=== PATIENT | male | born 1990 | race Caucasian/White ===

== ENCOUNTER 2016-07-29 14:25 | Emergency (ER) | payer OTHER ==
[~2016-07-29 14:25] MED LIST: IBUP800T24 PO; WHITGEL TOP
[2016-07-29 15:30] LABS: Basophils # (auto) 0 uL; Eosinophils # (auto) 0 uL; Eosinophils % (auto) 0.1 % (0.0-7.0); Hematocrit 48.2 % (41.0-53.0); Hemoglobin 16.5 g/dL (13.5-17.5); Lymphocytes # (auto) 0.8 uL; Lymphocytes % (auto) 5.6 % (10.0-50.0); Mean Corpuscular Hgb Conc. 34.3 g/dL (32.0-36.0); Mean Corpuscular Volume 87.6 fL (80.0-100.0); Mean Platelet Volume 9.3 fL (7.4-10.4); Monocytes # (auto) 0.7 uL; Monocytes % (auto) 4.7 % (0.0-12.0); Neutrophils # (auto) 12.8 uL; Neutrophils % (auto) 89.6 % (37.0-80.0); Platelet Count (auto) 303 10^3/uL (140-450); Red Cell Distribution Width 13.3 % (11.6-16.0); White Blood Cell 14.3 10^3/uL (4.4-10.8)
[2016-07-29 15:34] LABS: Albumin 4.9 g/dL (3.4-5.0); Alkaline Phosphatase 109 U/L (45-117); Anion Gap 10 (5-15); Aspartate Aminotransferase 19 U/L (15-37); BUN/Creatinine Ratio 16.5; Bilirubin, Total 1.1 mg/dL (0.2-1.0); Blood Urea Nitrogen 21 mg/dL (7-18); Calcium 10.2 mg/dL (8.5-10.1); Carbon Dioxide 26 mmol/L (21-32); Chloride 101 mmol/L (98-107); GFR African American 89 mL/min; GFR Non-African American 73 mL/min; Glucose 117 mg/dL (74-106); Magnesium 2.3 mg/dL (1.6-2.6); Potassium 4.3 mmol/L (3.5-5.1); Sodium 137 mmol/L (136-145); Total Protein 10.2 g/dL (6.4-8.2)
[2016-07-29 16:56] LABS: Urine Blood TRACE /uL (Negative); Urine Color Yellow (Yellow); Urine Glucose Normal (Normal); Urine Mucus MANY (None Seen); Urine Nitrite Negative (Negative); Urine RBC 4 /hpf (0 - 3)
[2016-07-29 17:02] LABS: Urine Ketone 3+ (Negative)
[2016-07-29 17:19] LABS: Urine Bilirubin Negative (Negative)
[2016-07-29 18:25] VITALS: BP 125/87
== END 2016-07-29 18:34 | disposition home or self-care (01) ==
LOC: EDBD 14:25 → ER 14:31
DX: R07.89 Other chest pain (principal); F12.10 Cannabis abuse, uncomplicated; G43.909 Migraine, unspecified, not intractable, without status migrainosus
CPT/HCPCS: 36415; 71010; 80053; 80307; 81001; 83735; 84484; 85025; 93005

== ENCOUNTER 2023-08-13 06:59 | Inpatient (IN) | payer MEDICAID, OTHER ==
[~2023-08-13] VITALS: Ht 188 cm; Wt 73.0 kg
[~2023-08-13 06:59] MED LIST changes: +IBUP-1456 PO; -IBUP800T24 PO
[2023-08-13 07:29] VITALS: PULSE 110; RESP 22; O2SAT 98
[2023-08-13] MEDS: SODIUM CHLORIDE 0.9% 1,000 ML IV ONE ×2 (07:30→07:47)
[2023-08-13] MEDS: ONDANSETRON HCL 4 MG/2 ML VIAL IV ONE (07:46)
[2023-08-13] MEDS: levETIRAcetam 1000 mg/100ml 100 ML IV ONE (07:47)
[2023-08-13 07:52] LABS: Basophils # (auto) 0.1 10 ^3/uL (0-0.2); Basophils % (auto) 1.3 % (0.0-2.0); Eosinophils # (auto) 0.5 10 ^3/uL (0-0.8); Eosinophils % (auto) 7.3 % (0.0-7.0); Hematocrit 43.3 % (41.0-53.0); Hemoglobin 14.5 g/dL (13.5-17.5); Lymphocytes # (auto) 1.2 10 ^3/uL (0.4-5.4); Lymphocytes % (auto) 17.6 % (10.0-50.0); Mean Corpuscular Hemoglobin 30.3 pg (28.0-32.0); Mean Corpuscular Hgb Conc. 33.6 g/dL (32.0-36.0); Mean Corpuscular Volume 90.1 fL (80.0-100.0); Monocytes # (auto) 0.3 10 ^3/uL (0-1.3); Monocytes % (auto) 4.5 % (0.0-12.0); Neutrophils # (auto) 4.5 10 ^3/uL (1.6-8.6); Neutrophils % (auto) 69.3 % (37.0-80.0); Red Blood Cells 4.81 10^6/uL (4.5-5.90); Red Cell Distribution Width 13.4 % (11.8-14.3); White Blood Cell 6.5 10^3/uL (4.4-10.8)
[2023-08-13 08:10] LABS: Chloride 107 mmol/L (98-107); Potassium 4.4 mmol/L (3.5-5.1); Sodium 139 mmol/L (136-145)
[2023-08-13 08:11] LABS: Anion Gap 2 (5-15); Carbon Dioxide 30 mmol/L (20-30)
[2023-08-13 08:12] LABS: Calcium 9.7 mg/dL (8.5-10.1)
[2023-08-13 08:16] LABS: Glucose 86 mg/dL (74-106)
[2023-08-13 08:17] LABS: BUN/Creatinine Ratio 9.8 (10.0-20.0); Blood Urea Nitrogen 10 mg/dL (9-23)
[2023-08-13] MEDS: ACETAMINOPHEN 500 MG TAB PO ONE (08:33)
[2023-08-13] MEDS ORDERED: LEVE500T3 PO (08:58)
[2023-08-13] MEDS ORDERED: MAGN400T6 PO (08:58)
[2023-08-13] MEDS ORDERED: VER40T PO (08:58)
[2023-08-13] MEDS: SODIUM CHLORIDE 0.9% 1,000 ML IV SCH (09:00)
[2023-08-13] MEDS ORDERED: ONDANSETRON HCL 4 MG/2 ML VIAL IV PRN (09:00)
[2023-08-13] MEDS ORDERED: NITROGLYCERIN 0.4 MG SL TAB SL PRN (09:00)
[2023-08-13] MEDS ORDERED: MORPHINE SULFATE INJ 2 MG/ml SYRG IV PRN (09:00)
[2023-08-13] MEDS ORDERED: MAGNESIUM OXIDE 400 MG TAB PO SCH (10:00)
[2023-08-13] MEDS: VERAPAMIL HCL 40 MG TAB PO SCH (10:00)
[2023-08-13] MEDS: ENOXAPARIN SOD 40 MG/0.4 ML SYRINGE SC SCH (11:19)
[2023-08-13] MEDS: levETIRAcetam 500 MG TAB PO SCH (11:19)
[2023-08-13] MEDS: MAGNESIUM OXIDE 400 MG TAB PO SCH (18:00)
[2023-08-13] MEDS: IBUPROFEN 800 MG TAB PO PRN (23:26)
[2023-08-13 23:28] VITALS: BP 105/50; PULSE 58; RESP 18; TEMP 97.9; O2SAT 94
[2023-08-14] VITALS (8 sets, daily range): BP systolic 105–115; BP diastolic 48–65; PULSE 51–68; RESP 16–22; TEMP 97.7–99.9; O2SAT 95–98
[2023-08-14 06:10] LABS: Basophils # (auto) 0.1 10 ^3/uL (0-0.2); Basophils % (auto) 0.7 % (0.0-2.0); Eosinophils # (auto) 0.6 10 ^3/uL (0-0.8); Eosinophils % (auto) 7.4 % (0.0-7.0); Hematocrit 38.5 % (41.0-53.0); Hemoglobin 13.1 g/dL (13.5-17.5); Lymphocytes # (auto) 1.7 10 ^3/uL (0.4-5.4); Lymphocytes % (auto) 20.8 % (10.0-50.0); Mean Corpuscular Hemoglobin 30.9 pg (28.0-32.0); Mean Corpuscular Hgb Conc. 34.1 g/dL (32.0-36.0); Mean Corpuscular Volume 90.6 fL (80.0-100.0); Monocytes # (auto) 0.6 10 ^3/uL (0-1.3); Neutrophils # (auto) 5.1 10 ^3/uL (1.6-8.6); Neutrophils % (auto) 64.1 % (37.0-80.0); Red Blood Cells 4.24 10^6/uL (4.5-5.90); Red Cell Distribution Width 12.9 % (11.8-14.3)
[2023-08-14 06:26] LABS: Alanine Aminotransferase 13 U/L (7-40); Albumin 3.8 g/dL (3.2-4.8); Alkaline Phosphatase 55 U/L (46-116); Anion Gap 3 (5-15); Aspartate Aminotransferase 15 U/L (13-40); BUN/Creatinine Ratio 9.9 (10.0-20.0); Bilirubin, Total 0.7 mg/dL (0.2-1.0); Blood Urea Nitrogen 10 mg/dL (9-23); Calcium 9.1 mg/dL (8.5-10.1); Carbon Dioxide 30 mmol/L (20-30); Chloride 107 mmol/L (98-107); Glucose 92 mg/dL (74-106); Potassium 4.4 mmol/L (3.5-5.1); Sodium 140 mmol/L (136-145); Total Protein 6.2 g/dL (5.7-8.2)
[2023-08-14] MEDS: ACETAMINOPHEN 325 MG TAB PO PRN (09:16)
[2023-08-14] MEDS ORDERED: LORazepam 2MG/ML-1ML VIAL IV PRN (11:00)
[2023-08-14 12:00] LABS: CRP High Sensitivity 0.32 mg/dL (<1.0); Magnesium 2.1 mg/dL (1.6-2.6)
[2023-08-14 14:38] LABS: Urine Bacteria None Seen /hpf (None Seen)
[2023-08-14 14:58] LABS: Urine Amorphous Crystal FEW /hpf (None Seen); Urine Blood Negative /uL (Negative); Urine Clarity Clear (Clear); Urine Color Light-Yellow (Yellow); Urine Protein, UAD Negative (Negative); Urine Specific Gravity 1.014 (1.001-1.035); Urine Urobilinogen Normal (Negative); Urine WBC <1 /hpf (0 - 3); Urine pH 7.5 (5.0-9.0)
[2023-08-14 15:09] LABS: Amphetamine Screen, Urine Neg (NEGATIVE); Barbiturate Scree,Urine Neg (NEGATIVE); Benzodiazephine Screen, Urine Neg (NEGATIVE)
[2023-08-14 15:10] LABS: Cannabinoid Screen, Urine Pos (NEGATIVE); Cocaine Screen, Urine Neg (NEGATIVE); Opiate Scree,Urine Neg (NEGATIVE); Phencyclidine Screen, Urine Neg (NEGATIVE)
[2023-08-15] VITALS (7 sets, daily range): BP systolic 98–114; BP diastolic 59–67; PULSE 56–75; RESP 15–21; TEMP 97.2–98.2; O2SAT 94–98
[2023-08-15 07:06] LABS: Anion Gap 6 (5-15); Carbon Dioxide 25 mmol/L (20-30); Chloride 107 mmol/L (98-107); Potassium 4.4 mmol/L (3.5-5.1); Sodium 138 mmol/L (136-145)
[2023-08-15 07:08] LABS: Calcium 9.4 mg/dL (8.7-10.4)
[2023-08-15 07:12] LABS: BUN/Creatinine Ratio 8.1 (10.0-20.0); Blood Urea Nitrogen 8 mg/dL (9-23); Glucose 97 mg/dL (74-106)
[2023-08-15 07:13] LABS: Basophils # (auto) 0.1 10 ^3/uL (0-0.2); Eosinophils # (auto) 0.5 10 ^3/uL (0-0.8); Eosinophils % (auto) 9.2 % (0.0-7.0); Hematocrit 39.8 % (41.0-53.0); Hemoglobin 13.4 g/dL (13.5-17.5); Lymphocytes # (auto) 1.3 10 ^3/uL (0.4-5.4); Lymphocytes % (auto) 21.6 % (10.0-50.0); Magnesium 1.9 mg/dL (1.6-2.6); Mean Corpuscular Hemoglobin 30.6 pg (28.0-32.0); Mean Corpuscular Hgb Conc. 33.8 g/dL (32.0-36.0); Mean Corpuscular Volume 90.6 fL (80.0-100.0); Monocytes # (auto) 0.4 10 ^3/uL (0-1.3); Monocytes % (auto) 6.8 % (0.0-12.0); Neutrophils # (auto) 3.6 10 ^3/uL (1.6-8.6); Neutrophils % (auto) 61.4 % (37.0-80.0); Red Blood Cells 4.39 10^6/uL (4.5-5.90); Red Cell Distribution Width 13.2 % (11.8-14.3); White Blood Cell 5.9 10^3/uL (4.4-10.8)
[2023-08-15 07:43] LABS: Erythrocyte Sedimentation Rate 5 mm/hr (0-20)
[2023-08-15 08:51] LABS: COVID19 ANTIGEN SOFIA FIA NEGATIVE (NEGATIVE)
[2023-08-15 08:52] LABS: Rapid Influenza A Negative (Negative); Rapid Influenza B Negative (Negative)
[2023-08-15] MEDS ORDERED: IOHEXOL 350 MG/ML 100ML IJ ONE (09:20)
== END 2023-08-15 18:30 | disposition home or self-care (01) | DRG 53 ==
LOC: EDBD 06:59 → EDUNIT# 06:59 → ER 06:59 → TELE 09:27 → ER 09:27 → TELE-WESTW 23:02
PROVIDERS: ADMIT Internal Medicine; ATTEND Emergency Medicine
DX: G40.409 Other generalized epilepsy and epileptic syndromes, not intractable, without status epilepticus (principal); E78.5 Hyperlipidemia, unspecified; Z20.822 Contact with and (suspected) exposure to COVID-19; I99.8 Other disorder of circulatory system; Z91.148 Patient's other noncompliance with medication regimen for other reason
CPT/HCPCS: 36415; 70450; 70496; 80048; 80053; 80061; 80307; 81001; 82542; 82550; 83735; 84443; 85025; 85652; 86141; 87426; 87804; 93971; 96365; 96375; G0378; J2405

== ENCOUNTER 2024-06-25 05:51 | Emergency (ER) | payer OTHER ==
[~2024-06-25] VITALS: Ht 188 cm; Wt 77.3 kg
[~2024-06-25 05:51] MED LIST changes: +LEVE500T3 PO; +MAGN400T6 PO; +VER40T PO
--- NOTE | 2024-06-25 06:16 | ECG ---
[facility] Test Date: 2024-06-25 Test Time: 06:10:09 Pat Name: ANDRIY VALENCIA Department: ED Room: Gender: M Pest Control Operator: : 1990 Requested By: EMERGENCY EMERGENCY Order Number: [id number] Reading MD: Pardeep Reddy Measurements Intervals [place] Rate: 65 P: 57 MO: 158 QRS: 89 QRSD: 100 T: 67 QT: 416 QTc: 433 Interpretive Statements Sinus rhythm ST elev, probable normal early repol pattern Electronically Signed On 06-26-2024 21:05:56 PDT by Pardeep Reddy Please click the below link to view image of tracing.
[2024-06-25 06:45] VITALS: PULSE 57; RESP 11; O2SAT 97
--- NOTE | 2024-06-25 07:07 | ED.PDOC ---
HPI (NEURO) HPI Comments 33 year old male presents to the ED via EMS with a chief complaint of seizures onset today (06/25/24). Per EMS, patient screamed out for family, family witnessed 4 seizures, each episode lasted about 2 minutes each, were a few minutes apart. Upon EMS arrival, patient was post-ictal. Upon ED arrival, patient states he did not take seizure medication yesterday, could not find medication bottle. Patient is currently experiencing dizziness and LT arm p ain/discomfort. PMHx seizure. Denies nausea, vomiting, diarrhea, abdominal pain, chest pain, shortness of breath. No other symptoms or modifying factors present at this time. Chief Complaint: Seizure Time Seen by MD: 06:43 Reviewed Notes: Medications, Allergies Information Source: Patient, Emergency Med Personnel Mode of Arrival: EMS Severity: Moderate Timing: Hours Duration: Since onset Prehospital treatment: None Seizure Quality: Mulitple Episodes Seizure Location: Generalized Onset: With light exertion Circumstances: Spontaneous Symptoms: Other Before: Normal During: Awake After: Normal Mentation History of: Seizure Disorder Modifying factors: Nothing Associated Signs and Symptoms: Other Past Medical History PAST MEDICAL HISTORY: Seizures Surgical History: Denies all surgeries Family History Family History: Reviewed,noncontributory to illness, No family hx of Cancer, No family hx of DM, No family hx of Heart janusz, No family hx of HTN, No family hx ofKidney janusz, No family hx of Liver janusz, No family hx of Lung janusz, No family hx of Stroke Social History Smoker: Non-Smoker Alcohol: Denies ETOH Use Drugs: Denies Drug Use Lives In: Home Constitutional: denies: chills, diaphoresis, fatigue, fever, malaise, sweats, weakness, others EENTM: denies: blurred vision, double vision, ear bleeding, ear discharge, ear drainage, ear pain, ear ringing, eye pain, eye redness, hearing loss, mouth pain, mouth swelling, nasal discharge, nose bleeding, nose congestion, nose pain, photophobia, tearing, throat pain, throat swelling, voice changes, others Respiratory: denies: cough, hemoptysis, orthopnea, SOB at rest, shortness of breath, SOB with excertion, stridor, wheezing, others Cardiovascular: denies: chest pain, dizzy spells, diaphoresis, Dyspnea on exertion, edema, irregular heart beat, left arm pain, lightheadedness, palpitations, PND, syncope, others Gastrointestinal: denies: abdomen distended, abdominal pain, blood streaked bowels, constipated, diarrhea, dysphagia, difficulty swallowing, hematemesis, melena, nausea, poor appetite, poor fluid intake, rectal bleeding, rectal pain, vomiting, others Genitourinary: denies: burning, dysuria, flank pain, frequency, hematuria, incontinence, penile discharge, penile sore, pain, testicle pain, testicle swelling, urgency, others Neurological: reports: dizziness; denies: fainting, headache, left sided numbness, left sided weakness, numbness, paresthesia, pre-existing deficit, right sided numbness, right sided weakness, seizure, speech problems, tingling, tremors, weakness, others Musculoskeletal: reports: others (LT arm pain); denies: back pain, gout, joint pain, joint swelling, muscle pain, muscle stiffness, neck pain Integumetry: denies: bruises, change in color, change in hair/nails, dryness, laceration, lesions, lumps, rash, wounds, others Allergic/Immunocompromised: denies: Difficulty Healing, Frequent Infections, Hives, Itching, others Hematologic/Lymphatic: denies: anemia, blood clots, easy bleeding, easy bruising, swollen glands, others Endocrine: denies: excessive hunger, excessive sweating, excessive thirst, excessive urination, flushing, intolerance to cold, intolerance to heat, unexplained weight gain, unexplained weight loss, others Psychiatric: denies: anxiety, bipolar disorder, depression, hopeless, panic disorder, schizophrenia, sleepless, suicidal, others All Other Systems: Reviewed and Negative Physical Exam General Appearance: No Apparent Distress, Normal HEENT: Normal ENT Inspection, Pharynx Normal, TMs Normal Neck: Full Range of Motion, Non-Tender, Normal, Normal Inspection Respiratory: Chest Non-Tender, Lungs Clear, No Accessory Muscle Use, No Respiratory Distress, Normal Breath Sounds Cardiovascular: No Edema, No JVD, No Murmur, No Gallop, Normal Peripheral Pulses, Regular Rate/Rhythm Breast Exam: Deferred Gastrointestinal: No Organomegaly, Non Tender, No Pulsatile Mass, Normal Bowel Sounds, Soft Genitalia: Deferred Pelvic: Deferred Rectal: Deferred Extremities: No calf tenderness, Normal capillary refill, Normal inspection, Normal range of motion, Non-tender, No pedal edema Musculoskeletal : Apperance: Normal Neurologic: Alert, trading analyst II-XII nml as Tested, No Motor Deficits, Normal Affect, Normal Mood, No Sensory Deficits Cerebellar Function: Normal Reflexes: Normal Skin: Dry, Normal Color, Warm Lymphatic: No Adenopathy Was a procedure done? Was a procedure done?: No Differential Diagnosis (SZ) Seizure: Hypoglycemia, Syncope, Epilepsy-Break Through, Epilepsy-Status CVA: Hypoglycemia General Weakness: N/A Headache: N/A X-Ray, Labs, Meds, VS Vital Signs Date Time Temp Pulse Resp B/P (MAP) Pulse Ox O2 Delivery O2 Flow Rate FiO2 06/25/24 13:00 74 14 106/75 (85) 06/25/24 12:00 74 14 98/68 (78) 100 06/25/24 11:00 68 14 107/58 (74) 100 06/25/24 10:00 76 14 104/56 (72) 100 06/25/24 09:00 71 16 103/62 (76) 100 06/25/24 08:00 Room Air* 0 21 06/25/24 08:00 87 19 114/59 (77) 100 06/25/24 07:54 97.7 84 14 109/62 (78) 99 97.7 06/25/24 06:45 97.7 57 11 103/67 (79) 97 97.7 06/25/24 06:45 57 11 97 Room Air* 0 21 06/25/24 06:10 65 06/25/24 05:57 97.6 72 18 144/80 (101) 98 97.6 Lab Test 06/25/24 07:12 Range/Units POC Glucose 140 H 70-106 mg/dl Current Medications Medications (Trade) Dose Ordered Sig/Jonathan Route Start Time Stop Time Status Last Admin Lorazepam (Ativan Inj) 2 mg ONCE ONCE IV 06/25/24 07:15 06/25/24 07:16 DC 06/25/24 07:12 Levetiracetam 200 ml @ 400 mls/hr ONCE ONCE IV 06/25/24 07:15 06/25/24 07:44 DC 06/25/24 07:13 Time of 1ST Reevaluation: 07:13 Reevaluation 1ST: Unchanged Patient Education/Counseling: Diagnosis, Treatment, Prognosis Family Education/Counseling: No Family Present Departure 1 Departure Time of Disposition: 14:16 (Patient has returned to baseline he would like to go home. Patient had a seizure secondary to noncompliance with medication.) Impression: Primary Impression: Seizure disorder Disposition: HOME / SELF CARE / HOMELESS Condition: Stable Additional Instructions: You had a breakthrough seizure today. It is important to take your seizure medication. You should stay well rested and well hydrated. You should follow up with your regular doctor within 1 week. If your symptoms worsen or you have any other concerns then please return to the emergency room. Discharged With: Significant Other Critical Care Note Critical Care Time?: No Stability Stability form required: No I personally scribed for VIDAL ALVARADO MD ([email or web address]) on 06/25/24 at 07:07. Electronically submitted by Theresa Garcia ([email or web address]). VIDAL ALVARADO MD Jun 25, 2024 07:07
[2024-06-25] MEDS: LORazepam 2MG/ML-1ML VIAL IV ONE (07:12)
[2024-06-25] MEDS: levETIRAcetam 1000 mg/100ml 200 ML IV ONE (07:13)
[2024-06-25] MEDS: LORazepam MDV 2MG/ML 10 ML IV ONE (07:13)
[2024-06-25 12:00] VITALS: O2SAT 100
[2024-06-25 14:30] VITALS: BP 103/62; PULSE 66; RESP 14
== END 2024-06-25 14:30 | disposition home or self-care (01) ==
LOC: EDBD 05:51 → MERGE 05:51 → ER 05:51
DX: G40.909 Epilepsy, unspecified, not intractable, without status epilepticus (principal); M79.602 Pain in left arm; R42 Dizziness and giddiness
CPT/HCPCS: 82947; 93005; 96374; 96375; 99285; J1953; J2060; 82962

== ENCOUNTER 2024-11-11 14:29 | Inpatient (IN) | payer MEDICAID, OTHER ==
[~2024-11-11] VITALS: Ht 177.8 cm; Wt 70.0 kg
--- NOTE | 2024-11-11 14:51 | ED.PDOC ---
Altered Mental Status HPI Comments This is a 34 year-old male, with a PMHX of tonic-clonic seizures, who presents to the ED via EMS for altered mental status as of 0800 this morning. Per EMS, patients family called due to patients inability to recall current dates/times, as well as patient speaking of family members that are or nonexistent. EMS reports pt is currently oriented to name and place. He is reportedly oriented x 4 at baseline. Upon evaluation, patient reports current body soreness, which he states is usually present after seizure activity, however he is unable to recall having a seizure. Per EMS, patient was last seen normal at 2200 last night. Patient states he takes his seizure medications daily, as pr escribed. No missing dose reported. Patient denies any trauma or injury to the head. Patient has no further complaints at this time and otherwise denies slurred speech, headache, dizziness, unsteady gait, N/V, or fever. Chief Complaint: ALOC Time Seen by MD: 14:33 Primary Care Provider: MIGUEL ÁNGELO Reviewed Notes: Nurses Notes, Medications, Allergies Allergies: Coded Allergies: NO KNOWN ALLERGIES (Unverified , 07/01/13) Home Meds Active Scripts Petrolatum (Vaseline) Gel, 1 APPLIC TOP PRN, #30 GRAMS 0 Refills Prov:LELIA SALDANA 07/01/13 Ibuprofen (Ibuprofen) 800 Mg Tab, 800 MG PO Q6HP PRN, #30 TAB 0 Refills Prov:LELIA SALDANA 07/01/13 Reported Medications Levetiracetam (Levetiracetam) 500 Mg Tab, 1 TAB PO BID 08/13/23 Verapamil Hcl (Calan) 40 Mg Tb, 1 TAB PO BID 08/13/23 Magnesium Oxide (Magnesium Oxide) 400 Mg Tab, 1 TAB PO DAILY 08/13/23 Information Source: Patient, Emergency Med Personnel Mode of Arrival: EMS Severity: Moderate Timing: Hours Duration: Since onset Prehospital treatment: None Quality: Confusion Past Medical History PAST MEDICAL HISTORY: Seizures Surgical History (Other): Right lower extremity Family History Family History: Reviewed,noncontributory to illness, Unknown Social History Smoker: Non-Smoker Alcohol: Denies ETOH Use Drugs: Marijuana Lives In: Home Constitutional: denies: chills, diaphoresis, fatigue, fever, malaise, sweats, weakness, others EENTM: denies: blurred vision, double vision, ear bleeding, ear discharge, ear drainage, ear pain, ear ringing, eye pain, eye redness, hearing loss, mouth pain, mouth swelling, nasal discharge, nose bleeding, nose congestion, nose pain, photophobia, tearing, throat pain, throat swelling, voice changes, others Respiratory: denies: cough, hemoptysis, orthopnea, SOB at rest, shortness of breath, SOB with excertion, stridor, wheezing, others Cardiovascular: denies: chest pain, dizzy spells, diaphoresis, Dyspnea on exertion, edema, irregular heart beat, left arm pain, lightheadedness, palpitations, PND, syncope, others Gastrointestinal: denies: abdomen distended, abdominal pain, blood streaked bowels, constipated, diarrhea, dysphagia, difficulty swallowing, hematemesis, melena, nausea, poor appetite, poor fluid intake, rectal bleeding, rectal pain, vomiting, others Genitourinary: denies: burning, dysuria, flank pain, frequency, hematuria, incontinence, penile discharge, penile sore, pain, testicle pain, testicle swelling, urgency, others Neurological: reports: others (altered ); denies: dizziness, fainting, headache, left sided numbness, left sided weakness, numbness, paresthesia, pre- existing deficit, right sided numbness, right sided weakness, seizure, speech problems, tingling, tremors, weakness Musculoskeletal: denies: back pain, gout, joint pain, joint swelling, muscle pain, muscle stiffness, neck pain, others Integumetry: denies: bruises, change in color, change in hair/nails, dryness, laceration, lesions, lumps, rash, wounds, others Allergic/Immunocompromised: denies: Difficulty Healing, Frequent Infections, Hives, Itching, others Hematologic/Lymphatic: denies: anemia, blood clots, easy bleeding, easy bruising, swollen glands, others Endocrine: denies: excessive hunger, excessive sweating, excessive thirst, excessive urination, flushing, intolerance to cold, intolerance to heat, unexplained weight gain, unexplained weight loss, others Psychiatric: denies: anxiety, bipolar disorder, depression, hopeless, panic disorder, schizophrenia, sleepless, suicidal, others All Other Systems: Reviewed and Negative Physical Exam General Appearance: No Apparent Distress HEENT: Other (Pupils and face symmetric. Moist mucous membranes.) Neck: Full Range of Motion, Non-Tender, Normal Inspection, Supple Respiratory: Lungs Clear, No Accessory Muscle Use, No Respiratory Distress, Normal Breath Sounds Cardiovascular: No Edema, No JVD, Regular Rate/Rhythm Breast Exam: Deferred Gastrointestinal: Non Tender, Soft Genitalia: Deferred Pelvic: Deferred Rectal: Deferred Extremities: Normal inspection, Normal range of motion, Non-tender, No pedal edema Neurologic: Alert (Oriented x2), Normal Affect, Normal Mood, Other (No gross focal motor or sensory deficit) Cerebellar Function: NOT DONE Reflexes: NOT DONE Skin: Dry, Normal Color, Warm Lymphatic: NOT DONE EKG EKG : Pulse Rate (adult): 65 [place]: Normal Cardiac Rhythm: NSR Block: None Hypertrophy: None ST: Normal Comments Sinus rhythm, rate 65, normal intervals, normal axis, normal QRS, no ST/T change. Was a procedure done? Was a procedure done?: No Differential Diagnosis (ALOC) Differential Diagnosis: Hypoglycemia, Encephalopathy, Meningitis, Seizure, Cl osed Head Injury, CVA, Mass Lesion, SAH, Drug Overdose, ETOH Intoxication, Other (Prolonged postictal state) X-Ray, Labs, Meds, VS Vital Signs Date Time Temp Pulse Resp B/P (MAP) Pulse Ox O2 Delivery O2 Flow Rate FiO2 11/11/24 20:23 98.0 68 16 138/79 (98) 98 98.0 11/11/24 17:41 98.3 70 16 140/77 (98) 98 98.3 11/11/24 15:55 65 11/11/24 15:44 63 16 95 Room Air 11/11/24 15:44 97.9 63 16 133/83 (100) 95 97.9 11/11/24 14:41 97.9 60 20 115/72 97 97.9 11/11/24 14:32 65 Lab Test 11/11/24 15:39 11/11/24 14:57 Range/Units Troponin I High Sensitivity < 3 L < 3 L </=54 ng/L White Blood Count 6.3 4.4-10.8 10^3/uL Red Blood Count 4.68 4.5-5.90 10^6/uL Hemoglobin 14.6 13.5-17.5 g/dL Hematocrit 42.3 41.0-53.0 % Mean Corpuscular Volume 90.5 80.0-100.0 fL Mean Corpuscular Hemoglobin 31.1 28.0-32.0 pg Mean Corpuscular Hemoglobin Concent 34.4 32.0-36.0 g/dL Red Cell Distribution Width 13.0 11.8-14.3 % Platelet Count 185 140-450 10^3/uL Mean Platelet Volume 8.3 6.9-10.8 fL Neutrophils (%) (Auto) 85.6 H 37.0-80.0 % Lymphocytes (%) (Auto) 8.4 L 10.0-50.0 % Monocytes (%) (Auto) 3.0 0.0-12.0 % Eosinophils (%) (Auto) 2.3 0.0-7.0 % Basophils (%) (Auto) 0.7 0.0-2.0 % Neutrophils # (Auto) 5.4 1.6-8.6 10 ^3/uL Lymphocytes # (Auto) 0.5 0.4-5.4 10 ^3/uL Monocytes # (Auto) 0.2 0-1.3 10 ^3/uL Eosinophils # (Auto) 0.1 0-0.8 10 ^3/uL Basophils # (Auto) 0 0-0.2 10 ^3/uL Nucleated Red Blood Cells 0.0 % Sodium Level 139 136-145 mmol/L Potassium Level 4.6 3.5-5.1 mmol/L Chloride Level 103 98-107 mmol/L Carbon Dioxide Level 28 20-31 mmol/L Anion Gap 8 5-15 Blood Urea Nitrogen 9 9-23 mg/dL Creatinine 0.99 0.700-1.30 mg/dL Glomerular Filtration Rate Calc 103 >90 mL/min BUN/Creatinine Ratio 9.1 L 10.0-20.0 Serum Glucose 98 74-106 mg/dL Calcium Level 9.2 8.7-10.4 mg/dL Total Bilirubin 0.5 0.2-1.0 mg/dL Aspartate Amino Transferase (AST) 18 13-40 U/L Alanine Aminotransferase (ALT) < 9 7-40 U/L Alkaline Phosphatase 43 L 46-116 U/L Total Protein 7.2 5.7-8.2 g/dL Albumin 4.3 3.2-4.8 g/dL Valproic Acid Level 31.1 L 50-100 ug/mL Lamotrigine (Lamictal) Level Pending Plasma/Serum Blood Alcohol < 3.0 <10 mg/dL Current Medications Medications (Trade) Dose Ordered Sig/Jonathan Route Start Time Stop Time Status Last Admin Sodium Chloride 2,000 ml @ 1,000 mls/hr Q2H ONCE IV 11/11/24 14:45 11/11/24 16:44 DC 11/11/24 15:32 Divalproex Sodium (Depakote "Dr" Tablet) 1,000 mg ONCE ONCE PO 11/11/24 16:15 11/11/24 16:57 DC 11/11/24 17:31 Ketorolac Tromethamine (Toradol Injection) 30 mg ONCE ONCE IV 11/11/24 17:45 11/11/24 17:46 DC 11/11/24 17:43 [place] [id number] Ph: [phone] DIAGNOSTIC IMAGING Diagnostic Imaging Report : [id number] Signed PATIENT: ANDRIY VALENCIA ACCT: [id number] UNIT: [id number] : 1990 LOC: ER ROOM / BED: / AGE / SEX: 34 / M ADM STATUS: REG ER SERVICE [id number] ORDERING PHYSICIAN: BEV KELLER MD PROCEDURE(s): HWOCT - HEAD WITHOUT CONTRAST REASON: altered mental status possible seizure ORDER NUMBER(s): [id number], ACCESSION NUMBER(s): [id number] COMPUTERIZED TOMOGRAPHY OF THE HEAD WITHOUT CONTRAST REASON FOR STUDY: altered mental status possible seizure COMPARISON: CT ANGIO HEAD/NECK on DOS: 08/15/23, CT HEAD WITHOUT CONTRAST on DOS: 08/14/23 TECHNIQUE: Helical tomographic scans were obtained through the brain. 2-D coronal and sagittal reformatted images are provided. Radiation optimization: All CT scans at this facility use at least one of these dose optimization techniques: Automated exposure control mA and/or kV adjustment per patient size (includes targeted exams where dose is matched to clinical indication) or iterative reconstruction. RADIATION DOSE: CTDI: 53.31 mGy DLP: 1050.68 mGy-cm FINDINGS: No suspicious intracranial hyperdensity to suggest acute blood. There is no mass effect nor midline shift. There is no hydrocephalus. The supra sellar cistern is intact. The calvarium is intact. The visualized mastoid air cells and paranasal sinuses are clear. IMPRESSION: No acute intracranial abnormality. X-Ray, Labs, Meds, VS Comment 34-year-old male with a history of seizures brought in by EMS from home for evaluation of altered mental status characterized by disorientation and nonsensical statements. Vitals unremarkable Exam remarkable for orientation x2 Rhythm strip independently interpreted by me: Sinus rhythm, rate 65, no ectopy. CT head unremarkable CBC, basic metabolic panel, troponin, and alcohol level unremarkable. Valproic acid level is subtherapeutic at 31.1. Lamictal level, UA and urine drug screens are pending Patient treated with the following in the ED: 2 L 0.9 normal saline IV bolus, Depakene 1 g p.o., Lamictal 100 mg p.o. On re-evaluation, patient remains oriented x2. If patient did have a seizure, this would possibly indicate a prolonged postictal state. There has been no seizure activity in the ED, and it is unclear whether or not the patient actually had a seizure prior to presentation in the ED. Plan is to admit the patient for brain MRI and Neurology evaluation. Images Reviewed?: Images reviewed and evaluated by me Time of 1ST Reevaluation: 15:26 Reevaluation 1ST: Unchanged Patient Education/Counseling: Diagnosis, Treatment, Need For Follow Up Family Education/Counseling: No Family Present Medical Screening: No EMC Exist At This Time SEPSIS Sepsis Screen Physician Orders Electrocardigram (11/11/24 14:42) Head Without Contrast (11/11/24 14:41) Drug Screen (11/11/24 14:41) Probation And Parole Officer (11/11/24 14:41) Pulse Oximetry (11/11/24 14:41) Blood Pressure (11/11/24 14:41) Heplock Iv (11/11/24 14:41) Lamotrigine (Lamictal) (11/11/24 14:41) Seizure Precautions (11/11/24 ) Lamotrigine Tablet (Lamictal Tablet) (11/11/24 20:45) Vital Signs Date Time Temp Pulse Resp B/P (MAP) Pulse Ox O2 Delivery O2 Flow Rate FiO2 11/11/24 20:23 98.0 68 16 138/79 (98) 98 98.0 11/11/24 17:41 98.3 70 16 140/77 (98) 98 98.3 11/11/24 15:55 65 11/11/24 15:44 63 16 95 Room Air 11/11/24 15:44 97.9 63 16 133/83 (100) 95 97.9 11/11/24 14:41 97.9 60 20 115/72 97 97.9 11/11/24 14:32 65 Laboratory Tests Test 11/11/24 14:57 White Blood Count 6.3 10^3/uL (4.4-10.8) Medications Medications Dose Ordered Sig/Jonathan Route Start Time Stop Time Status Last Admin Dose Admin Divalproex Sodium 1,000 mg ONCE ONCE PO 11/11/24 16:15 11/11/24 16:57 DC 11/11/24 17:31 Ketorolac Tromethamine 30 mg ONCE ONCE IV 11/11/24 17:45 11/11/24 17:46 DC 11/11/24 17:43 Sodium Chloride 2,000 ml @ 1,000 mls/hr Q2H ONCE IV 11/11/24 14:45 11/11/24 16:44 DC 11/11/24 15:32 Departure 1 Departure Time of Disposition: 16:30 Impression: Primary Impression: Altered mental status Disposition: 09 ADMITTED INPATIENT Admit to: Tele Condition: Guarded Critical Care Note Critical Care Time?: No Stability Stability form required: No Heart Score Heart Score: Heart Score Response (Comments) Value History N/A 0 EKG N/A 0 Age N/A 0 Risk Factors N/A 0 Troponin N/A 0 Total 0 I personally scribed for BEV KELLER MD ([email or web address]) on 11/11/24 at 14:51. Electronically submitted by Belia Florez ([employer]). I personally scribed for BEV KELLER MD ([email or web address]) on 11/11/24 at 15:55. Electronically submitted by Belia Florez ([employer]). BEV KELLER MD Nov 11, 2024 14:51
[2024-11-11 15:25] LABS: Hematocrit 42.3 % (41.0-53.0); Hemoglobin 14.6 g/dL (13.5-17.5); Mean Corpuscular Hemoglobin 31.1 pg (28.0-32.0); Mean Corpuscular Volume 90.5 fL (80.0-100.0); Nucleated Red Blood Cells % 0.0 %
[2024-11-11] MEDS: SODIUM CHLORIDE 0.9% 2,000 ML IV ONE (15:32)
--- NOTE | 2024-11-11 15:35 | DVH ---
COMPUTERIZED TOMOGRAPHY OF THE HEAD WITHOUT CONTRAST REASON FOR STUDY: altered mental status possible seizure COMPARISON: CT ANGIO HEAD/NECK on DOS: 08/15/23, CT HEAD WITHOUT CONTRAST on DOS: 08/14/23 TECHNIQUE: Helical tomographic scans were obtained through the brain. 2-D coronal and sagittal refor matted images are provided. Radiation optimization: All CT scans at this facility use at least one of these dose optimization techniques: Automated exposure control mA and/or kV adjustment per patient s ize (includes targeted exams where dose is matched to clinical indication) or iterative reconstructio n. RADIATION DOSE: CTDI: 53.31 mGy DLP: 1050.68 mGy-cm FINDINGS: No suspicious intracranial hyperdensity to suggest acute blood. There is no mass effect n or midline shift. There is no hydrocephalus. The suprasellar cistern is intact. The calvarium is inta ct. The visualized mastoid air cells and paranasal sinuses are clear. IMPRESSION: No acute intracranial abnormality.
[2024-11-11 15:42] LABS: Albumin 4.3 g/dL (3.2-4.8); Anion Gap 8 (5-15); BUN/Creatinine Ratio 9.1 (10.0-20.0); Calcium 9.2 mg/dL (8.7-10.4); Carbon Dioxide 28 mmol/L (20-31); Chloride 103 mmol/L (98-107); Glucose 98 mg/dL (74-106); Potassium 4.6 mmol/L (3.5-5.1); Sodium 139 mmol/L (136-145); Total Protein 7.2 g/dL (5.7-8.2)
[2024-11-11 15:43] LABS: Bilirubin, Total 0.5 mg/dL (0.2-1.0)
[2024-11-11 15:54] LABS: Alanine Aminotransferase < 9 U/L (7-40); Alkaline Phosphatase 43 U/L (46-116); Blood Urea Nitrogen 9 mg/dL (9-23)
[2024-11-11] MEDS: KETOROLAC TROMETH 30 MG/ML 1ML VIAL IV ONE (17:43)
[2024-11-11] MEDS: lamoTRIgine 100 MG TAB PO ONE (20:41)
[2024-11-11] MEDS ORDERED: ONDANSETRON HCL 4 MG/2 ML VIAL IV PRN (20:45)
[2024-11-11] MEDS ORDERED: DOCUSATE SOD 100 MG CAP PO PRN (20:45)
[2024-11-11] MEDS ORDERED: LORazepam 2MG/ML-1ML VIAL IV PRN (21:00)
[2024-11-11 21:14] LABS: Magnesium 1.9 mg/dL (1.6-2.6)
[2024-11-11] MEDS: SODIUM CHLORIDE 0.9% 1,000 ML IV ONE (21:14)
[2024-11-11 21:26] VITALS: PULSE 64; RESP 18; O2SAT 96
[2024-11-11] MEDS ORDERED: LAMO100T44 PO (22:56)
[2024-11-11] MEDS: levETIRAcetam 500 mg/100ml 100 ML IV ONE (23:48)
[2024-11-12 01:26] VITALS: BP 112/66; PULSE 66; RESP 18; O2SAT 95
--- NOTE | 2024-11-12 02:02 | DVHHPRES ---
History of Present Illness Resident Creating Document: GENO PAINTING RESIDENT History of Present Illness Racquel James Is a 34-year-old male with past medical history of tonic-clonic seizures who presented to the ED with altered mental status this morning. Patient states that he does not remember having a seizure and his seizures only occur when he is sleeping. Every time he loses consciousness and feels confused after the seizure. patient states that he follows neurologist in [place]. he states that he remembers having a headache at 4:00 a.m. in the morning and went to sleep and after that woke up in the hospital. Remembers having vomited 2 times, is feeling nauseous and had chills, sweats before the seizure. patient had 1 episode of seizure in the ED for which Ativan was given and Keppra 500 mg started. patient states that he takes all him his medications regularly, as prescribed. Did not miss any dose. patient states that his seizures started since 2022. He had 2 previous seizures this year and states he has 6 seizures in total from 2022. Patient denies any trauma or injury to the head, denies any slurred speech, headache, dizziness, nausea vomiting, diarrhea, fever, no further complaints at this time. Takes Depakote 500mg, lamotrigine 100 mg. Past surgical history: Right ankle surgery Family history: Noncontributory Personal history: Denies smoking, drinking, uses marijuana every day lives with: Family Review of Systems Constitutional: Yes: Chills, Sweats, Weakness; No: Fever, Malaise, Other Eyes: No: Pain, Vision change, Conjunctivae inflammation, Eyelid inflammation, Other, Redness ENT: No: Ear pain, Ear discharge, Nose pain, Nose discharge, Nose congestion, Mouth pain, Mouth swelling, Throat pain, Throat swelling, Other Respiratory: No: Cough, Dry, Shortness of breath, SOB with excertion, Wheezing, Hemoptysis, Pleuritic Pain, Sputum, Wheezing, Other Cardiovascular: No: Chest Pain, Palpitations, Orthopnea, Paroxysmal Noc. Dyspnea, Edema, Lt Headedness, Other Gastrointestinal: Nausea, Vomiting Genitourinary: No Dysuria, No Frequency, No Incontinence, No Hematuria, No Retention, No Other Musculoskeletal: neck pain; No: other, shoulder pain, arm pain, back pain, hand pain, leg pain, foot pain Skin: No: Rash, Lesions, Jaundice, Bruising, Other Neurological: No: Weakness, Numbness, Incoordination, Change in speech, Confusion, Seizures, Other Allergies: Coded Allergies: NO KNOWN ALLERGIES (Unverified , 07/01/13) Medications Current Medications Medications Dose Ordered Sig/Jonathan Route Start Time Stop Time Status Last Admin Dose Admin Acetaminophen/ Hydrocodone Bitart 1 tab Q4HP PRN PO 11/11/24 20:45 Ondansetron HCl 4 mg Q4HP PRN IV 11/11/24 20:45 Docusate Sodium 100 mg BIDPRN PRN PO 11/11/24 20:45 Lorazepam 2 mg Q4HP PRN IV 11/11/24 21:00 Levetiracetam 100 ml @ 400 mls/hr BID IV 11/12/24 10:00 Exam Vital Signs Vital Signs Date Time Temp Pulse Resp B/P (MAP) Pulse Ox O2 Delivery O2 Flow Rate FiO2 11/12/24 01:26 66 18 112/66 (81) 95 11/11/24 21:26 Room Air* 0 21 21 11/11/24 20:23 98.0 98.0 Exam General: Patient alert and oriented in person, place and time. Patient following commands. HEENT: Normocephalic, atraumatic, moist mucous membranes, neck pain Respiratory/pulmonary: Clear lungs bilaterally, vesicular murmurs present in almost all lung koch, no associated crackles or wheezes. Cardiovascular: Normal heart sounds S1 and S2 with no associated murmurs Abdomen: Abdomen nondistended, there is no pain to palpation in any of the abdominal quadrants, no palpable masses. Extremities: There is no peripheral edema present at the lower extremities. Peripheral Pulses: 3+ Radial (R). 3+ Radial (L). 3+ Dorsalis pedis (R). 3+ Dominic salis pedis(L) Skin: No rashes or pruritus, there is no sacral edema present at this time. Neurological: Intact cranial nerves with no focal neurologic deficits Psych, mood: Normal psych, more Labs/Xrays Labs Test 11/11/24 15:39 11/11/24 14:57 Range/Units Troponin I High Sensitivity < 3 L </=54 ng/L White Blood Count 6.3 4.4-10.8 10^3/uL Red Blood Count 4.68 4.5-5.90 10^6/uL Hemoglobin 14.6 13.5-17.5 g/dL Hematocrit 42.3 41.0-53.0 % Mean Corpuscular Volume 90.5 80.0-100.0 fL Mean Corpuscular Hemoglobin 31.1 28.0-32.0 pg Mean Corpuscular Hemoglobin Concent 34.4 32.0-36.0 g/dL Red Cell Distribution Width 13.0 11.8-14.3 % Platelet Count 185 140-450 10^3/uL Mean Platelet Volume 8.3 6.9-10.8 fL Neutrophils (%) (Auto) 85.6 H 37.0-80.0 % Lymphocytes (%) (Auto) 8.4 L 10.0-50.0 % Monocytes (%) (Auto) 3.0 0.0-12.0 % Eosinophils (%) (Auto) 2.3 0.0-7.0 % Basophils (%) (Auto) 0.7 0.0-2.0 % Neutrophils # (Auto) 5.4 1.6-8.6 10 ^3/uL Lymphocytes # (Auto) 0.5 0.4-5.4 10 ^3/uL Monocytes # (Auto) 0.2 0-1.3 10 ^3/uL Eosinophils # (Auto) 0.1 0-0.8 10 ^3/uL Basophils # (Auto) 0 0-0.2 10 ^3/uL Nucleated Red Blood Cells 0.0 % Sodium Level 139 136-145 mmol/L Potassium Level 4.6 3.5-5.1 mmol/L Chloride Level 103 98-107 mmol/L Carbon Dioxide Level 28 20-31 mmol/L Anion Gap 8 5-15 Blood Urea Nitrogen 9 9-23 mg/dL Creatinine 0.99 0.700-1.30 mg/dL Glomerular Filtration Rate Calc 103 >90 mL/min BUN/Creatinine Ratio 9.1 L 10.0-20.0 Serum Glucose 98 74-106 mg/dL Calcium Level 9.2 8.7-10.4 mg/dL Magnesium Level 1.9 1.6-2.6 mg/dL Total Bilirubin 0.5 0.2-1.0 mg/dL Aspartate Amino Transferase (AST) 18 13-40 U/L Alanine Aminotransferase (ALT) < 9 7-40 U/L Alkaline Phosphatase 43 L 46-116 U/L Total Protein 7.2 5.7-8.2 g/dL Albumin 4.3 3.2-4.8 g/dL Valproic Acid Level 31.1 L 50-100 ug/mL Plasma/Serum Blood Alcohol < 3.0 <10 mg/dL SEPSIS Sepsis Screen Date sepsis recognized/suspect: Nov 11, 2024 Time Sepsis recognized/suspect: 2129 Recent Procedure: No On Antibiotic Therapy: No Respiratory Rate >20: No Heart Rate >90: No Temp<36 C (96.8 F) or >38.3 C: No SBP <90 or MAP <65 mmHG: No New Acute Mental Status Change: No Is the patient on CPAP, BIPAP,: No Physician Orders Admit (11/11/24 20:44) Allergies (11/11/24 20:44) Code Status (11/11/24 20:44) Hydrocodone-Acet 5/325mg Tab ([place] 5/32 (11/11/24 20:45) Ondansetron Hcl (Zofran) (11/11/24 20:45) Docusate Sodium Capsule (Colace Capsule) (11/11/24 20:45) Fall Risk Precautions In Place QSHIFT (11/11/24 20:44) Complete Blood Count (11/12/24 04:00) Comprehensive Metabolic Panel (11/12/24 04:00) Npo (Nothing By Mouth) Diet (11/12/24 Breakfast) Condition: Serious (11/11/24 20:44) Oxygen By Nasal Cannula (11/11/24 20:44) Stat Ekg For Chest Pain (11/11/24 20:44) Notify Md Of Changes From Base (11/11/24 20:44) Camp Coordinator For 24 Hours (11/11/24 20:44) Emergency Dysrhythmia Protocol (11/11/24 20:44) Rhythm Strips Once Every Shift (11/11/24 20:44) Lorazepam 2mg/Ml Inj (Ativan Inj) (11/11/24 21:00) Drug Screen (11/11/24 20:46) Seizure Precautions (11/11/24 20:46) Sodium Chloride 0.9% (11/11/24 21:00) Glascow Coma Scale (11/11/24 20:46) Levetiracetam 500 Mg/100ml (Levetiraceta (11/12/24 10:00) Vital Signs Date Time Temp Pulse Resp B/P (MAP) Pulse Ox O2 Delivery O2 Flow Rate FiO2 11/12/24 01:26 66 18 112/66 (81) 95 11/11/24 22:35 66 22 112/66 (81) 96 11/11/24 21:26 64 18 96 Room Air* 0 21 21 11/11/24 20:23 98.0 68 16 138/79 (98) 98 98.0 Laboratory Tests Test 11/11/24 14:57 White Blood Count 6.3 10^3/uL (4.4-10.8) Medications Medications Dose Ordered Sig/Jonathan Route Start Time Stop Time Status Last Admin Dose Admin Divalproex Sodium 1,000 mg ONCE ONCE PO 11/11/24 16:15 11/11/24 16:57 DC 11/11/24 17:31 1,000 MG Ketorolac Tromethamine 30 mg ONCE ONCE IV 11/11/24 17:45 11/11/24 17:46 DC 11/11/24 17:43 30 MG Lamotrigine 100 mg ONCE ONCE PO 11/11/24 20:45 11/11/24 20:46 DC 11/11/24 20:41 100 MG Levetiracetam 100 ml @ 400 mls/hr ONCE ONCE IV 11/11/24 23:00 11/11/24 23:14 DC 11/11/24 23:48 400 MLS/HR Sodium Chloride 1,000 ml @ 30 mls/hr Q24H ONCE IV 11/11/24 21:00 11/12/24 20:59 11/11/24 21:14 30 MLS/HR Sodium Chloride 2,000 ml @ 1,000 mls/hr Q2H ONCE IV 11/11/24 14:45 11/11/24 16:44 DC 11/11/24 15:32 1,000 MLS/HR Assessment/Plan Assessment/Plan # Encephalopathy Toxic was metabolic # Generalized tonic-clonic seizures with postictal state # breakthrough seizure - patient's GCS is 15 post seizure - low valproic acid level - head CT showed no acute intracranial abnormality - Ativan 2 mg for Avoiding seizures - Keppra 500mg BID - seizure precautions - restart lamotrigine, Depakote after input from Neurology - consulted neurology, pending - Ordered Lactate - Ordered CK for possible muscle injury # Rule out Aspiration Pneumonia/ pneumonitis - Chest X ray ordered #Cannabis use; patient counseled on cessation for 13 mins #Dyslipidemia: check lipid panel and start Atorvastatin #Possible nonadherence: Patient counseled on the importance of medication adherence Goals of care addressed with the patient for more than 31 minutes: Full code status Case discussed with , patient and nurse Plan discussed with: Patient My Orders Orders - GENO PAINT[employer] RESIDENT Procedure Category Date Status Time Admit ADMIT 11/11/24 Transmitted 20:44 Allergies RONI 11/11/24 In Process 20:44 Code Status CODE 11/11/24 Transmitted 20:44 Hydrocodone-Acet PHA 11/11/24 In Process 5/325mg Tab ([place] 20:45 Ondansetron Hcl PHA 11/11/24 In Process (Zofran) 20:45 Docusate Sodium PHA 11/11/24 In Process Capsule (Colace 20:45 Fall Risk Precautions RONI 11/11/[address] 20:44 Complete Blood Count LAB 11/12/24 Logged 04:00 Comprehensive LAB 11/12/24 Logged Metabolic Panel 04:00 Npo (Nothing By DIET 11/12/24 Transmitted Mouth) Diet Breakfast Condition: Serious RONI 11/11/24 In Process 20:44 Oxygen By Nasal RT 11/11/24 Transmitted Cannula 20:44 Stat Ekg For Chest RONI 11/11/24 In Process Pain 20:44 Notify Of Changes [facility] 11/11/24 In Process From Base 20:44 Camp Coordinator For [facility] 11/11/24 In Process 24 Hours 20:44 Emergency Dysrhythmia RONI 11/11/24 In Process Protocol 20:44 Rhythm Strips Once [facility] 11/11/24 In Process Every Shift 20:44 Lorazepam 2mg/Ml Inj PHA 11/11/24 In Process (Ativan Inj) 21:00 Drug Screen LAB 11/11/24 Logged 20:46 Seizure Precautions ED NURSING 11/11/24 Transmitted 20:46 Sodium Chloride 0.9% PHA 11/11/24 In Process 21:00 Glascow Coma Scale ED NURSING 11/11/24 Transmitted 20:46 Levetiracetam 500 PHA 11/12/24 In Process Mg/100ml (Levetiraceta 10:00 Date of Service: Nov 12, 2024 Billing Provider: NANCY STOCK MD Common Visit Codes: 91541-[id number] INP/OBS CARE (HIGH) Secondary Visit Codes: 45850-[id number] CARE PLAN 30 MINUTES GENO PAINTING RESIDENT Nov 12, 2024 02:02
[2024-11-12] MEDS: MAGNESIUM SULFATE 1GM/100ML 100 ML IV ONE (05:15)
[2024-11-12] MEDS: HYDROcodone-ACET 5/325MG TAB PO PRN (05:19)
[2024-11-12 05:26] VITALS: BP 107/67; PULSE 71; RESP 18; TEMP 98.6; O2SAT 96
--- NOTE | 2024-11-12 06:21 | DVH ---
CHEST RADIOGRAPH Indication: aspiration pneumonia Technique: Single frontal view of the chest was obtained COMPARISON: None FINDINGS: Lines and Tubes: None Lungs: Clear. Bilateral costophrenic angles excluded from the image. Pleura: No effusion. No pneumothorax. Cardiomediastinal contours: Unremarkable Bones: Unremarkable IMPRESSION: 1. No acute disease. Bilateral costophrenic angle is excluded from the image.
[2024-11-12 06:38] LABS: Hematocrit 37.1 % (41.0-53.0); Hemoglobin 12.8 g/dL (13.5-17.5); Mean Corpuscular Hemoglobin 31.2 pg (28.0-32.0); Mean Corpuscular Volume 90.1 fL (80.0-100.0); Nucleated Red Blood Cells % 0.0 %
[2024-11-12 07:09] LABS: Albumin 3.9 g/dL (3.2-4.8); Anion Gap 8 (5-15); BUN/Creatinine Ratio 9.5 (10.0-20.0); Carbon Dioxide 27 mmol/L (20-31); Glucose 92 mg/dL (74-106); Potassium 4.1 mmol/L (3.5-5.1); Sodium 143 mmol/L (136-145); Total Protein 6.2 g/dL (5.7-8.2)
[2024-11-12 07:10] LABS: Bilirubin, Total 0.7 mg/dL (0.2-1.0)
[2024-11-12 07:11] LABS: Alanine Aminotransferase < 9 U/L (7-40); Alkaline Phosphatase 40 U/L (46-116); Blood Urea Nitrogen 9 mg/dL (9-23); Calcium 8.5 mg/dL (8.7-10.4); Chloride 108 mmol/L (98-107)
[2024-11-12 07:40] VITALS: PULSE 69; RESP 13; O2SAT 97
[2024-11-12 07:55] LABS: Triglycerides 74 mg/dL (< 150)
[2024-11-12 07:57] LABS: Cholesterol 167 mg/dL (< 200); HDL Cholesterol 48 mg/dL (40-59)
[2024-11-12 08:01] VITALS: TEMP 98.2
--- NOTE | 2024-11-12 10:18 | DVHINCON2 ---
Date of service: Nov 12, [address] Ray Reason for Consultation Seizure disorder History of Present Illness Mr. James is a 34 years old right-handed gentleman with a history of seizure disorder, he was brought to the [facility] on 11/11/2024 afternoon w ith a chief complaint of seizure activity. At this time, he is alert and fully oriented, he provided the following history He remembers waking up in the midnight, using bathroom, drinking water, and returning to bed, but the next memory was waking up in the emergency room, and he was said to have seizure activity, he reports there was no associated oral trauma, incontinence He has a seizure disorder since 2022, he has spells of event where he is shaking all over body, with loss of consciousness, sometimes he has oral trauma, or incontinence. So far the event only happened when he is asleep. This one is the slurred attack in 2024 (04/2024, 05/2024) Since 2022, he has [place] experience with associated mild confusion, this used to be very frequent, but only once weekly since he has been on seizure medication treatment He sees Dr. Amy Henderson, a [facility] neurologist, he is on lamotrigine 100 mg b.i.d., Depakote 500 mg q.d.. Briviact 100 mg b.i.d. was lis t as his home medication but he reports that he has stopped taking Keppra caused dizziness He denies recent acute illness, such as chills, fever, coughing, diarrhea, nausea or vomiting He reports he skipped his Depakote in the evening on 11/10/2024 Valproic acid, 11/11/24: 31.1 Lamotrigine, 11/11/2024: Plasma alcohol, 11/11/2024: <3 CBC, 11/11/2024: Unremarkable CMP, 10/12/2024: Unremarkable TG/HDL/LDL/HDL, 11/12/2024: 74/167/115/48 TSH, 11/12/2024: 0.9 Chest x-ray, 11/12/2024: No acute disease. Bilateral costophrenic angle is excluded from the image CT head, 11/11/24: No acute intracranial abnormality Past Medical History Seizure disorder Past Surgical History Right leg trauma repair Family History: Patient reports no known family medical history. Family History Reviewed,noncontributory to illness, Unknown Social History Smoker: Non-Smoker Alcohol: Denies ETOH Use Drugs: Marijuana Lives In: Home He does not drive Allergies: Coded Allergies: NO KNOWN ALLERGIES (Unverified , 07/01/13) Home Meds Active Scripts Petrolatum (Vaseline) Gel, 1 APPLIC TOP PRN, #30 GRAMS 0 Refills Prov:LELIA SALDANA PAC 07/01/13 Ibuprofen (Ibuprofen) 800 Mg Tab, 800 MG PO Q6HP PRN, #30 TAB 0 Refills Prov:LELIA SALDANA PAC 07/01/13 Reported Medications Lamotrigine (Lamotrigine) 100 Mg Tab, PO 11/11/24 Levetiracetam (Levetiracetam) 500 Mg Tab, 1 TAB PO BID 08/13/23 Verapamil Hcl ([place]) 40 Mg Tb, 1 TAB PO BID 08/13/23 Magnesium Oxide (Magnesium Oxide) 400 Mg Tab, 1 TAB PO DAILY 08/13/23 Current Medications Current Medications Medications (Trade) Dose Ordered Sig/Jonathan Route PRN Reason Start Time Stop Time Status Last Admin Acetaminophen/ Hydrocodone Bitart ([place] 5/325MG Tab) 1 tab Q4HP PRN PO MODERATE PAIN (4-6 PAIN SCALE) 11/11/24 20:45 11/12/24 05:19 Ondansetron HCl (Zofran) 4 mg Q4HP PRN IV NAUSEA / VOMITING 11/11/24 20:45 Docusate Sodium (Colace Capsule) 100 mg BIDPRN PRN PO FOR CONSTIPATION 11/11/24 20:45 Lorazepam (Ativan Inj) 2 mg Q4HP PRN IV seizure 11/11/24 21:00 Levetiracetam 100 ml @ 400 mls/hr BID IV 11/12/24 10:00 Atorvastatin Calcium (Lipitor) 40 mg HS PO 11/12/24 22:00 11/12/24 04:57 DC Review of Systems As above, the other systems are negative Vital Signs Vital Signs Date Time Temp Pulse Resp B/P (MAP) Pulse Ox O2 Delivery O2 Flow Rate FiO2 11/12/24 08:01 98.2 69 13 115/70 (85) 97 98.2 11/12/24 07:40 Room Air* 0 21 Physical Exam GENERAL EXAM: General: the patient is well developed and nourished. No acute distress. HEENT: Normocephalic, neck is supple, no carotid bruits. No mass. RESPIRATORY: Normal respiratory effort with symmetrical lung expansion. Lungs clear to auscultation. CARDIOVASCULAR: Regular rate and rhythm with no murmurs. S1, S2. ABDOMEN: Soft, nontender, normal bowel sound NEUROLOGICAL: MENTAL STATUS: Awake and alert. Oriented to person, place, time and general circumstances. Able to give personal history SPEECH, LANGUAGE, HIGHER CORTICAL FUNCTION: no aphasia or dysathria. CRANIAL NERVES: #2: Intact visual koch to confrontation. The optic discs were sharp #3,4,6: Pupils are equal, round and reactive. EOMs full and conjugate. No n ystagmus. #5: Facial sensation intact in all three divisions bilaterally. Mandibular strength intact. #7: Facial muscles symmetrical and strength intact. #8: Hearing grossly normal to voice. #9,10: Uvula and soft palate rise in the midline. Swallow and voice are normal. #11: Trapezius and sternomastoid strength intact bilaterally. #12: Tongue midline. No fasciculations or atrophy. SENSATION: Sensation to touch and pinprick is normal. MOTOR: Normal tone in the upper and lower extremity. Normal muscle bulk. No fasciculations. No abnormal movements or posturing. Muscle strength of the major groups in the upper extremities is 5/5. Muscle strength of the major groups in the lower extremities is 5/5. REFLEXES: Deep tendon reflexes are symmetrical. No pathological reflexes. CEREBELLAR/COORDINATION: Finger to nose and heel to singh are normal bilaterally. GAIT/STATION: deferred. Labs/Diagnostic Data Labs Test 11/12/24 07:30 11/12/24 05:55 11/11/24 15:39 11/11/24 14:57 Range/Units Lactic Acid Level 0.7 0.4-2.0 mmol/L White Blood Count 7.4 4.4-10.8 10^3/uL Red Blood Count 4.12 L 4.5-5.90 10^6/uL Hemoglobin 12.8 L 13.5-17.5 g/dL Hematocrit 37.1 #L 41.0-53.0 % Mean Corpuscular Volume 90.1 80.0-100.0 fL Mean Corpuscular Hemoglobin 31.2 28.0-32.0 pg Mean Corpuscular Hemoglobin Concent 34.6 32.0-36.0 g/dL Red Cell Distribution Width 12.9 11.8-14.3 % Platelet Count 172 140-450 10^3/uL Mean Platelet Volume 8.4 6.9-10.8 fL Neutrophils (%) (Auto) 69.7 37.0-80.0 % Lymphocytes (%) (Auto) 16.7 10.0-50.0 % Monocytes (%) (Auto) 7.9 0.0-12.0 % Eosinophils (%) (Auto) 5.0 0.0-7.0 % Basophils (%) (Auto) 0.7 0.0-2.0 % Neutrophils # (Auto) 5.1 1.6-8.6 10 ^3/uL Lymphocytes # (Auto) 1.2 0.4-5.4 10 ^3/uL Monocytes # (Auto) 0.6 0-1.3 10 ^3/uL Eosinophils # (Auto) 0.4 0-0.8 10 ^3/uL Basophils # (Auto) 0 0-0.2 10 ^3/uL Nucleated Red Blood Cells 0.0 % Sodium Level 143 136-145 mmol/L Potassium Level 4.1 3.5-5.1 mmol/L Chloride Level 108 H 98-107 mmol/L Carbon Dioxide Level 27 20-31 mmol/L Anion Gap 8 5-15 Blood Urea Nitrogen 9 9-23 mg/dL Creatinine 0.95 0.700-1.30 mg/dL Glomerular Filtration Rate Calc 108 >90 mL/min BUN/Creatinine Ratio 9.5 L 10.0-20.0 Serum Glucose 92 74-106 mg/dL Calcium Level 8.5 L 8.7-10.4 mg/dL Total Bilirubin 0.7 0.2-1.0 mg/dL Aspartate Amino Transferase (AST) 16 13-40 U/L Alanine Aminotransferase (ALT) < 9 7-40 U/L Alkaline Phosphatase 40 L 46-116 U/L Creatine Kinase 67 46-171 U/L Total Protein 6.2 5.7-8.2 g/dL Albumin 3.9 3.2-4.8 g/dL Triglycerides Level 74 < 150 mg/dL Cholesterol Level 167 < 200 mg/dL LDL Cholesterol 115 H < 100 mg/dL HDL Cholesterol 48 40-59 mg/dL Thyroid Stimulating Hormone (TSH) 0.90 0.55-4.78 uIU/mL Troponin I High Sensitivity < 3 L </=54 ng/L Magnesium Level 1.9 1.6-2.6 mg/dL Valproic Acid Level 31.1 L 50-100 ug/mL Plasma/Serum Blood Alcohol < 3.0 <10 mg/dL Assessment Grand mal seizure Seizure breakthrough Leslie vu, likely it is partial complex seizure Plan/Recommendation Monitoring Supportive treatment Telemetry Lamotrigine 100 mg b.i.d. Depakote 500 mg daily Ativan for seizure breakthrough We have discussed about common seizure triggers Okay to discharge home from neurologic point of view Follow with his PCP, Clari Chand neurologist CARTER Progress: Poor This medical document was created using an electronic medical record system with [employer] dictation system. Although this document has been carefully reviewed, there may still be some phonetic and typographical errors. These areas are purely typographical due to imperfections of the software programs, and do not reflect any compromise in the patient's medical care. Plan discussed with: Patient, Other SOLO MCKEON MD Nov 12, 2024 10:18
--- NOTE | 2024-11-12 10:30 | ECG ---
[facility] Test Date: 2024-11-11 Test Time: 14:32:15 Pat Name: ANDRIY VALENCIA Department: Room: [address] [place] [address] Gender: M Personal Financial Advisor: LUCIO : 1990 Requested By: BEV YAN Order Number: [id number] Reading MD: Pardeep Reddy Measurements Intervals [place] Rate: 65 P: 79 [place]: 142 QRS: 85 QRSD: 99 T: 40 QT: 385 QTc: 401 Interpretive Statements Sinus rhythm Electronically Signed On 11-14-2024 15:04:02 PDT by Pardeep Reddy Please click the below link to view image of tracing.
[2024-11-12 11:30] VITALS: PULSE 63; RESP 13; O2SAT 97
[2024-11-12] MEDS: levETIRAcetam 500 mg/100ml 100 ML IV SCH (11:43)
[2024-11-12 11:57] LABS: Urine Protein, UAD Negative (Negative)
[2024-11-12 12:07] LABS: Amphetamine Screen, Urine Neg (NEGATIVE); Barbiturate Scree,Urine Neg (NEGATIVE); Benzodiazephine Screen, Urine Neg (NEGATIVE); Cocaine Screen, Urine Neg (NEGATIVE); Opiate Scree,Urine Neg (NEGATIVE)
[2024-11-12 12:08] LABS: Cannabinoid Screen, Urine Pos (NEGATIVE); Phencyclidine Screen, Urine Neg (NEGATIVE)
[2024-11-12] MEDS ORDERED: DIVA1TAB58 PO (13:47)
[2024-11-12] MEDS ORDERED: LAM100T PO (13:47)
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
[2024-11-12 14:00] VITALS: BP 107/72; PULSE 72; RESP 14; O2SAT 100
[2024-11-12] MEDS ORDERED: lamoTRIgine 100 MG TAB PO SCH (22:00)
[2024-11-12] MEDS ORDERED: ATORVASTATIN 20 MG TAB PO SCH (22:00)
[2024-11-13] MEDS ORDERED: lamoTRIgine 100 MG TAB PO ONE (10:00)
== END 2024-11-12 14:04 | disposition home or self-care (01) | DRG 53 ==
LOC: ER 14:29 → EDBD 14:29 → OVERFLOW 20:44 → UNDODEPER 11-12 13:52 → OVERFLOW 11-12 14:04
PROVIDERS: ADMIT Student in an Organized Health Care Education/Training Program; ATTEND Student in an Organized Health Care Education/Training Program
DX: G40.209 Localization-related (focal) (partial) symptomatic epilepsy and epileptic syndromes with complex partial seizures, not intractable, without status epilepticus (principal); G92.8 Other toxic encephalopathy; G40.409 Other generalized epilepsy and epileptic syndromes, not intractable, without status epilepticus; E78.5 Hyperlipidemia, unspecified; R32 Unspecified urinary incontinence; Z79.899 Other long term (current) drug therapy
CPT/HCPCS: 36415; 70450; 71045; 80053; 80061; 80164; 80307; 80320; 81001; 82542; 82550; 83605; 83735; 84443; 84484; 85025; 93005; 96361; 96374; G0378; J1885